=== PATIENT | female | born 2005 | race Hispanic/Latino ===

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

== ENCOUNTER 2024-12-24 07:45 | Emergency (ER) | payer BC, MEDICAID ==
[~2024-12-24] VITALS: Ht 165.1 cm; Wt 109.3 kg
[~2024-12-24 07:45] MED LIST changes: +IBUP-2070 PO
[2024-12-24 07:46] VITALS: BP 157/90; PULSE 97; RESP 18; TEMP 97.7
--- NOTE | 2024-12-24 08:24 | ERN ---
General Chief Complaint: Abscess Stated Complaint: LUMP IN SACRAL AREA Time Seen by MD: 07:47 History of Present Illness Initial Comments 19-year-old female who presents for abscess in the left gluteal cleft for the last 48 hours. No systemic illness. She reports she had a pilonidal cyst about five years ago requiring draining and this feels the same. There is a fluctuant area on the left gluteal cleft consistent with a cyst. Allergies: Coded Allergies: No Known Drug Allergies (Unverified Allergy, Unknown, 02/20/22) Home Meds Active Scripts Ibuprofen (Ibuprofen) 600 Mg Tablet, 600 MG PO Q6H PRN for PAIN, #30 TAB 0 Refills Prov:ERIC ESPANA MD 02/07/23 Olopatadine HCl (Pataday) 5 Ml Drops, 5 ML OP DAILY, #15 ML Prov:ROSA CERVANTES MD 12/14/22 Sulfamethoxazole/Trimethoprim (Bactrim Ds Tablet) 1 Each Tablet, 1 TAB PO BID for 7 Days, #14 TAB 0 Refills Prov:NEIL CARR 02/20/22 Past Medical History Past Medical History: No Pertinent History Past Surgical History: None Family History Family History: Negative Social History Social History: Negative, Lives with family ROS Dictation CONSTITUTIONAL: No chills, no fever, no weakness, no diaphoresis, no malaise. HEAD/FACE: No signs of trauma. EENT: No eye pain, no blurred vision, no tearing, no double vision, no ear pain, no ear discharge, no nose pain, no nasal congestion, no throat pain, no throat swelling, no mouth pain. RESPIRATORY: No cough, no orthopnea, no SOB, no stridor, no wheezing. CARDIOVASCULAR: No chest pain, no edema, no palpitations, no syncope. GASTROINTESTINAL/ABDOMINAL: No abdominal pain, no constipation, no diarrhea, no nausea, no vomiting. GENITOURINARY: No abnormal discharge, no dysuria, no frequent urination, no hematuria. No complaints of pain in the genitals. MUSCULOSKELETAL: Pain pilonidal area INTEGUMENTARY: No change in color, no change in hair/nails, no dryness, no lesion, no lumps, no rash. NEUROLOGICAL/PSYCH: No anxiety, not depressed, no emotional problem, no headache, no numbness, no pre-existing deficit, no history of seizures, no tremors, no weakness. HEMATOLOGIC/LYMPHATIC: Not anemic, no history of blood clots, no apparent bleeding, no bruising, glands not swollen. All Systems Negative, Except as Noted. Physical Exam Physical Exam Dictation VITAL SIGNS: Reviewed. GENERAL APPEARANCE: Alert, oriented x3, no acute distress, obese. HEAD AND FACE: Non-traumatic. EYES: PERRL, pink conjunctivas, eyelid no trauma, anterior chamber clear. EARS: Pinnas intact and no signs of trauma or erythema. Ear canals clear and no discharge. TMs no erythema. NOSE: No discharge, no bleeding. OROPHARYNX: Mouth normal, teeth no caries, tongue pink. Pharynx clear, no erythema. Tonsils no exudates, no abscesses noted. Mucous membrane moist. NECK: Supple, non-tender, no thyromegaly, no masses, no JVD, no bruits. BREAST: Deferred. CHEST: No tenderness, no crepitus, no paradoxical movement, no retractions. LUNGS: Clear, well-ventilated, symmetric, no rales, no wheezing, no rhonchi, no stridor, good breath sounds bilaterally. HEART: Regular rate, regular rhythm, no murmur, no gallops. VASCULAR: No peripheral edema. ABDOMEN: Soft, positive bowel sounds, nondistended, no guarding, nontender, no rebound, no masses no hepatomegaly, no splenomegaly, no Velazco's sign, no hernias. RECTAL: Fluctuant area in the left gluteal cleft, does not tract, no perianal discomfort. GENITAL: Deferred. NEUROLOGICAL: Normal speech, gross motor function intact, gross sensory function intact. MUSCULOSKELETAL: Neck nontender, full range of motion, back nontender, full range of motion. EXTREMITIES: Nontender, full range of motion. SKIN: Color pink, dry, no turgor, no rash, no lacerations, no abrasions, no contusions. LYMPHATICS: Deferred. MDM CC: Pain in the gluteal cleft with the abscess Historian: Patient Comorbidities: History of pilonidal cyst Limitations by social determinants of health: None Differential diagnosis: Pilonidal cyst versus abscess. On clinical exam there was no perirectal or perianal abscess. It appears to be a simple pilonidal cyst versus abscess. Performed an incision and drainage. Purulent drainage was removed. The wound was cleaned. A proximally 1 cm laceration. See the procedure note. There was no complications. We will discharge with the antibiotics pain control and recommend PCP follow up. Family agrees with the plan. Patient agrees with the plan. ED Course Orders Procedure Category Date Status Time Lidocaine 1%-Epi PHA 12/24/24 Complete 1:100,000 (Lidocaine 08:30 Current Medications Medications (Trade) Dose Ordered Sig/David Route PRN Reason Start Time Stop Time Status Last Admin Dose Admin Lidocaine/ Epinephrine (Lidocaine 1%-Epi 1:100,000) 20 ml ONCE IJ 12/24/24 08:30 12/24/24 08:15 DC Vital Signs Date Time Temp Pulse Resp B/P (MAP) Pulse Ox O2 Delivery O2 Flow Rate FiO2 12/24/24 07:46 97.7 97 18 157/90 98 Room Air Incision and Drainage Incision and Drainage : Blade Size: 11 I & D Procedure: no betadine prep Progress Pilonidal cyst drainage Wound was cleaned with chlorhexidine Noemi, hospital staff, present for the entire procedure a clinical marketing manager. Patient's mother also in the room. Site: Left gluteal cleft On clinical exams about a grape sized abscess 7 cc of 1% lidocaine injected 1 cm laceration with 11 blade scalpel Purulence drained Wound was explored and drained No packing Cleaned with a sterile dressing We will DC Performed by me Total time 5 minutes DX & DISP Disposition: Discharge Departure Impression: Primary Impression: Infected pilonidal cyst Condition: Stable Assign Patient to: You had a pilonidal cyst with infection (pilonidal abscess). It was drained here in the ER. As we discussed, keep the wound clean with soap and water. Keep it covered with a Band-Aid and gauze. Try to encourage drainage. I recommend sitting in warm water, such as a bath. I have prescribed antibiotics (amoxicillin/clavulanic acid). Take for a minimum of seven days. I have prescribed Tylenol with codeine to use for significant pain. I recommend you also take 600 mg of ibuprofen up to 4 times a day. This medication is [id number]. As we discussed, you need a wound check in about 72 hours. You can go to your primary doctor or return to the emergency department for re-evaluation. Please return to the emergency department if you have any concerns. Scripts Acetaminophen with Codeine (Acetaminophen-Cod #3 Tablet) 300 Mg-30 Mg Tablet 1 TAB PO Q6HPRN PRN for pain for 7 Days, #28 TAB 0 Refills Prov: EILEEN WASHINGTON DO 12/24/24 Amoxicillin/Potassium Clav (Amox Tr-K Clv 875-125 mg Tab) 875 Mg-125 Mg Tablet 1 TAB PO BID for 10 Days, #20 TAB 0 Refills Prov: EILEEN WASHINGTON DO 12/24/24 Referrals: CHRISTIAN WATKINS (PCP) EILEEN WASHINGTON DO Dec 24, 2024 08:24
[2024-12-24] MEDS ORDERED: LIDOCAINE 1%-EPI 1:100,000 20 ML VIAL IJ SCH (08:30)
[2024-12-24] MEDS ORDERED: AMOX1TAB16 PO (08:37)
[2024-12-24] MEDS ORDERED: ACET-2079 PO (08:37)
--- NOTE | 2024-12-24 08:37 | NUR ---
WITH RIVERA BRITO TO ASSIST, DR WASHINGTON WAS ABLE TO LETY AND DRAIN THE PYELONITAL CYST. IT WAS CLEANSED PRIOR TO AND POST DRAINAGE. A SMALL 2X2 DRESSING W/OPSITE PLACED OVER. WOUND CARE INSTRUCTIONS PROVIDED BY DR WASHINGTON
== END 2024-12-24 09:13 | disposition home or self-care (01) ==
LOC: EDH 07:45
DX: L05.01 Pilonidal cyst with abscess (principal)
CPT/HCPCS: 10080; 99283